=== PATIENT | female | born 1995 | race African-American/Black ===

== ENCOUNTER 2024-03-06 23:43 | Inpatient (IN) | payer OTHER ==
[~2024-03-06] VITALS: Ht 162.6 cm; Wt 51.7 kg
--- NOTE | 2024-03-06 23:14 | NUR ---
REPORT RECIEVED FROM TYRONE LINK AT [facility].
--- NOTE | 2024-03-06 23:55 | NUR ---
FEMALE PATIENT ARRIVED TO ROOM #308 VIA STRETCHER FROM [facility] BY EMS. PATIENT ASSISTED TO BED WITH STAND BY ASSIST. GAIT STEADY. INT TO RIGHT AC INTACT WITH NO COMPLICATIONS NOTED. REPORT RECIEVED FROM EMS. INITAL INTAKE AND ASSESSMENT COMPLETED. PATIENT TOLERATED WELL. [facility]. ADMISSION ORDERS RECIEVED. PINEDO NON-SKID SOCKS APPLIED TO BILATERAL FEET. PATIENT REQUESTED WARM BLANKET AND WAS GIVEN. PATIENT STATES PAIN LEVEL IS 5 ON SCALE OF 0 TO 10. PATIENT DENIES ANY OTHER NEEDS AT THIS TIME. BED IN LOW POSITION WITH WHEELS LOCKED WITH RAILS UP X2 AND CALL LIGHT WITHIN REACH.
[2024-03-07] VITALS (12 sets, daily range): BP systolic 86–118; BP diastolic 52–93; PULSE 57–84; TEMP 98.1–98.9
[2024-03-07] MEDS ORDERED: CIPRO 500MG TA500 MG PO (00:11)
[2024-03-07] MEDS ORDERED: FLAGYL500 MG PO (00:12)
[2024-03-07] MEDS ORDERED: NORCO 325 MG-7.1 TAB PO (00:14)
[2024-03-07] MEDS ORDERED: TYLENOL 325MG325 MG PO (00:15)
[2024-03-07] MEDS ORDERED: FERROUS FUMARA324 MG PO (00:19)
[2024-03-07] MEDS ORDERED: Ondansetron 4 MG/2 ML VIAL IV PRN ×2 (00:30→13:15)
[2024-03-07] MEDS ORDERED: Morphine 4 MG/ML VIAL IV PRN (00:30)
[2024-03-07] MEDS ORDERED: metroNIDAZOLE 100 ML IV SCH (00:30)
[2024-03-07] MEDS ORDERED: LR 1,000 ML IV SCH (00:30)
[2024-03-07] MEDS ORDERED: Acetaminophen 325 MG TAB PO PRN (00:30)
--- NOTE | 2024-03-07 01:26 | NUR ---
PATIENT C/O PAIN IN ABDOMEN. 7 ON SCALE OF 0 TO 10. MORPHINE GIVEN PER MD ORDER. PATIENT DENIES ANY NEEDS AT THIS TIME. BED IN LOW POSITION WITH WHEELS LOCKED WITH RAILS UP X2 AND CALL LIGHT WITHIN REACH.
--- NOTE | 2024-03-07 07:00 | NUR ---
PT RESTING IN BED. IVF RUNNING. PT COMPLAINING OF PAIN. MEDS GIVEN. PT IS AXO4. PT IS ON RA. PT HAS CALL LIGHT AND INSTRUCTED TO CALL WITH ALL NEEDS. 0483- BEDSIDE TO SEE PT.
[2024-03-07] MEDS ORDERED: PROAIR HFA0.09 MG/AC IH (08:18)
[2024-03-07] MEDS ORDERED: Pantoprazole 40 MG in NS 10 ML IV SCH (09:00)
[2024-03-07] MEDS ORDERED: Magnesium Sulfate 2 GM/50 ML IV SOLN IV SCH (12:00)
--- NOTE | 2024-03-07 12:13 | NUR ---
1100 UNABLE TO FIND MORNING LAB RESULTS. SPOKE WITH CATHY MELISSA WHO HAD SOME LAB RESULTS BUT NOT ALL. 1200-THIS RN CALLED LAB REGARDING MISSING LAB RESULTS. WAS INFORMED THEY WILL INVESTIGATE.
--- NOTE | 2024-03-07 12:47 | NUR ---
line up worker met with pt to complete intake assessment. She appears to be in pain due to eyes being shut and moaning/groaning during conversation in short replies. Pt confirms she lives in [place] with her , Jack [phone]. She reports she [place] not have a PCP, [place] She is independent with ADLS and uses no DME. She states she uses the [facility] with no difficulties. She does not have a DPOA-HC. No further needs. Discharge Plan: home
[2024-03-07] MEDS ORDERED: HYDROmorphone 0.5 MG/0.5 ML SYRINGE IV PRN (13:00)
[2024-03-07] MEDS ORDERED: methylPREDNISolone Sod Succ 40 MG/ML VIAL IV SCH (13:15)
--- NOTE | 2024-03-07 14:15 | NUR ---
D: Associate Software Developer stopped by room on rounds. A: Pt was resting with in the room. Just recently moved to [place] from [place]. is . Pt and appreciated the visit. P: Associate Software Developer informed pt that if she needed anything from the jewelry cutter area to let her nurse know. Associate Software Developer will follow up as needed.
[2024-03-07] MEDS ORDERED: Polyethylene Glycol 3350 119 GM BOTTLE PO SCH (18:00)
--- NOTE | 2024-03-07 21:24 | NUR ---
UPON SHIFT ASSESSMENT, PATIENT WAS IN BED SLEEPING ON RIGHT SIDE. BOWEL SOUONDS ARE HYPOACTIVE IN LT UPPER QUADRANT. PATIENT C/O OF 6/10 UPPER GASTRIC PAIN. DILAUDID 0.25MG ADMINISTERED. PATIENT IS ALSO ATTEMPTING BOWEL PREP WITH MIRALAX, HOWEVER, CANNOT TOLERATE EVEN WHEN GIVEN ZOFRAN. DISBROW IS AWARE. LR RUNNING IN RT AC AT 100ML/HR. PATIENT STATES NO NEEDS AT THIS TIME. VS ARE WNL.
--- NOTE | 2024-03-07 23:57 | NUR ---
ALERTED BY PCTHERBERT. PATIENT SYSTOLIC BP 86. BP RECHECK PERFORMED IMMEDIATELY-97/61 MAP=73. PATIENT ASYMPTOMATIC, AXO X 4. DISTAL PULSES PALPABLE ALL OTHER VS WNL. WILL RE- ASSESS IN 25MINS.
[2024-03-08] VITALS (12 sets, daily range): BP systolic 95–119; BP diastolic 51–97; PULSE 54–72; TEMP 97.7–98.4
[2024-03-08] MEDS ORDERED: Polyethylene Glycol 3350 119 GM BOTTLE PO SCH
--- NOTE | 2024-03-08 00:29 | NUR ---
CALL PLACED TO [facility]. PATIENT C/O ABDOMINAL PAIN 5/10 AND GETTING WORSE. PATIENT HAS SOFT BP AND LOW HR. 97/61 AND 56 BPM- CONCERNS FOR DILAUDID ADMINISTERATION VOICED. TORB TO BOLUS 250ML OF IVF AND THEN GIVE DILAUDID AND MAINTAIN BP VIGILANCE GIVEN.
--- NOTE | 2024-03-08 01:15 | NUR ---
NO DILAUDID OR BOLUS GIVEN REASSESMENT OF PAIN HAS DROPPED TO 4/10 AND PATIENT STATED, "I DON'T FEEL ANYTHING NOW. I FEEL REALLY CALM." REPEAT VS TAKEN- 101/64 BP, 54 PULSE, 02 97% ON RA.
[2024-03-08] MEDS ORDERED: LR 1,000 ML IV SCH (07:00)
[2024-03-08 07:50] LABS: BASO % 0.3 % (0.0-2.0); EOS % 0.9 % (0.0-4.0); GRAN # 2.1 K/mm3 (1.4-6.5); GRAN % 62.4 % (42.2-75.2); HEMATOCRIT 31.6 % (37.0-47.0); HEMOGLOBIN 9.9 g/dl (12.5-16.0); LYMPH % 29.7 % (20.0-51.0); MEAN CELL VOLUME 73 fl (80.0-100.0); MEAN CORPUSCULAR HEMOGLOBIN 23 pg (27-31); MEAN CORPUSCULAR HGB CONC 31 g/dl (33.0-37.0); MEAN PLATELET VOLUME 10.2 fl (7.4-10.4); MONO # 0.2 K/mm3 (0.1-0.6); MONO % 6.4 % (1.7-9.3); PLATELET COUNT 384 K/mm3 (130-400); RED BLOOD COUNT 4.31 M/mm3 (4.10-5.30); REDCELL DISTRIBUTION WIDTH-CV 14.5 % (11.5-14.5)
--- NOTE | 2024-03-08 09:20 | NUR ---
PT BACK FROM ENDOSCOPY AND POST OP VITALS STARTED. MEDS GIVEN PER ORDER, LR RUNNING AT 100 MLS/HR IN RIGHT AC. PT DENIES PAIN. PT NOTIFIED OF CLEAR LIQUID DIET AND GIVEN BROTH. PT DENIES NEEDS. BED IN LOWEST POSITION, CALL LIGHT IN REACH, BED ALARM ON.
--- NOTE | 2024-03-08 11:39 | NUR ---
LR DISCONTINUED PER ORDER, PT DENIES PAIN AT THIS TIME
--- NOTE | 2024-03-08 13:00 | NUR ---
PT REPORTS SMALL AMOUNT OF BLOOD NOTED WHEN AFTER USING THE BATHROOM. PT STATES THAT STOOLS ARE STILL LIQUID. THIS NURSE NOTIFIED PT OF POSSIBILITY OF SCANT BLOOD AFTER COLONOSCOPY. PT DENIES PAIN OR NAUSEA AT THIS TIME. BED IN LOWEST POSITION, CALL LIGHT IN REACH
--- NOTE | 2024-03-08 20:30 | NUR ---
PT A&O X4 LAYING IN BED. VSS. PT DENYING PAIN. TOLERATING BLAND DIET WITHOUT N/V. INT TO RT AC PATENT. PT DENYING OTHER NEEDS. CALL LIGHT IN REACH
[2024-03-09] VITALS (14 sets, daily range): BP systolic 89–119; BP diastolic 53–79; PULSE 55–67; TEMP 97.5–98.8
--- NOTE | 2024-03-09 | NUR ---
PT REPORTING SOME NAUSEA, STATES SHE THINK SHE ATE TO MUCH OF HER SANDWHICH EARLIER. GAVE PRN ANAI PER NOV.
--- NOTE | 2024-03-09 07:00 | NUR ---
PT LAYING IN BED UPON ENTERING. ASSESSMENT DONE. PT REPORTS NAUSEA AND GIVEN PRN ZOFRAN. PT REPORTS SOME ABDOMINAL PAIN BUT DENIES NEED FOR PRN AT THIS TIME. INT TO RIGHT FOREARM PATENT. PT DENIES NEEDS. BED IN LOWEST POSITION, CALL LIGHT IN REACH.
--- NOTE | 2024-03-09 08:00 | NUR ---
PT DENIES PAIN AND NAUSEA AT THIS TIME
[2024-03-09 08:43] LABS: BASO % 0.2 % (0.0-2.0); EOS % 0.2 % (0.0-4.0); GRAN # 7.3 K/mm3 (1.4-6.5); HEMOGLOBIN 10.4 g/dl (12.5-16.0); LYMPH # 0.8 K/mm3 (1.2-3.4); LYMPH % 9.7 % (20.0-51.0); MEAN CELL VOLUME 74 fl (80.0-100.0); MEAN CORPUSCULAR HEMOGLOBIN 23 pg (27-31); MEAN CORPUSCULAR HGB CONC 32 g/dl (33.0-37.0); MONO # 0.2 K/mm3 (0.1-0.6); MONO % 1.8 % (1.7-9.3); PLATELET COUNT 383 K/mm3 (130-400); RED BLOOD COUNT 4.45 M/mm3 (4.10-5.30); REDCELL DISTRIBUTION WIDTH-CV 14.8 % (11.5-14.5)
[2024-03-09 08:44] LABS: HEMATOCRIT 32.7 % (37.0-47.0)
[2024-03-09 09:08] LABS: ALBUMIN 2.8 g/dL (3.5-5.0); ALKALINE PHOSPHATASE 39 U/L (40-150); ANION GAP 9 mmol/L (7-16); AST,SGOT 9 U/L (5-34); BILIRUBIN,TOTAL 0.3 mg/dL (0.2-1.2); CALCIUM 9.1 mg/dL (8.4-10.2); CHLORIDE 109 mEq/L (98-107); CREATININE, serum 0.79 mg/dL (0.57-1.11); GLUCOSE 131 mg/dL (70-99); POTASSIUM 3.6 mEq/L (3.5-4.5); SODIUM 140 mEq/L (136-145); TOTAL PROTEIN 6.7 g/dl (6.2-8.1)
[2024-03-09 09:22] LABS: ALANINE AMINOTRANSFERASE < 6 U/L (0-55); BLOOD UREA NITROGEN < 5 mg/dL (7-19)
[2024-03-10 04:12] VITALS: BP 105/60; PULSE 60; TEMP 98.3
[2024-03-10 04:15] VITALS: BP_SYST 105
--- NOTE | 2024-03-10 05:00 | NUR ---
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 PT HAVE A PRETTY GOOD NIGHT. PT DID COMPLAIN OF NAUSEA ONCE THIS SHIFT. PT GIVEN ZOFRAN FOR HER NAUSEA. PT FELT THE MEDICATION WAS EFFECTIVE. PT DENIED GENERAL PAIN, CHEST PAIN, PALPITATIONS, SOB, V,D OR DIZZINESS. CALL LIGHT WITHIN REACH.
--- NOTE | 2024-03-10 07:00 | NUR ---
PT SLEEPING IN BED. ZOSYN RUNNING. CALL LIGHT WITH IN REACH. PT ON RA. PT NOT ON TELE.
[2024-03-10 07:43] VITALS: BP 98/60; PULSE 53; TEMP 98.1
[2024-03-10 08:15] VITALS: BP_SYST 98
[2024-03-10 11:20] VITALS: BP 109/64; PULSE 67; TEMP 98.2
[2024-03-10] MEDS ORDERED: ORTIKOS9 MG PO (11:31)
[2024-03-10] MEDS ORDERED: ZOFRAN 4MG T4 MG/TAB PO (11:31)
[2024-03-10] MEDS ORDERED: AMOXICILLIN 8751 TAB PO (11:32)
--- NOTE | 2024-03-10 11:50 | NUR ---
IV REMOVED. DISCHARGE INSTRUCTIONS DISCUSSED WITH PT. DISCUSSED NEW PRESCRIPTIONS, LOW FIBER DIET, AND FOLLOW UP'S. ALL QUESTIONS ANSWERED. PT WILL GET READY AND CALL WHEN RIDE IS HERE.
--- NOTE | 2024-03-10 12:45 | NUR ---
PT ACCOMPAINED OUT FOR DISCHARGE. PT HAS ALL PAPERWORK.
== END 2024-03-10 12:50 | disposition home or self-care (01) | DRG 387 ==
LOC: MEDICAL 23:43
PROVIDERS: Internal Medicine Gastroenterology; Surgery; ADMIT Hospitalist
PROC: 0DBB8ZX Excision of Ileum, Via Natural or Artificial Opening Endoscopic, Diagnostic (ICD-10-PCS; 2024-03-08)
PROC: 0DBE8ZX Excision of Large Intestine, Via Natural or Artificial Opening Endoscopic, Diagnostic (ICD-10-PCS; 2024-03-08)
PROC: 0DB98ZX Excision of Duodenum, Via Natural or Artificial Opening Endoscopic, Diagnostic (ICD-10-PCS; principal; 2024-03-08 07:15)
PROC: 0DB68ZX Excision of Stomach, Via Natural or Artificial Opening Endoscopic, Diagnostic (ICD-10-PCS; 2024-03-08 07:15)
DX: K50.012 Crohn's disease of small intestine with intestinal obstruction (principal); K52.9 Noninfective gastroenteritis and colitis, unspecified; J45.909 Unspecified asthma, uncomplicated; K62.89 Other specified diseases of anus and rectum; E83.42 Hypomagnesemia; Z91.011 Allergy to milk products; Z79.899 Other long term (current) drug therapy; Q43.0 Meckel's diverticulum (displaced) (hypertrophic)
CPT/HCPCS: C9113; J1170; J1836; J2270; J2405; J2543; J2704; J2919; J3475; J7120